=== PATIENT | female | born 1970 | race Caucasian/White ===

== ENCOUNTER 2016-12-07 11:29 | Inpatient (IN) | payer BC ==
[2016-11-26 08:52] VITALS: BMI 24.0
--- NOTE | 2016-11-26 09:21 | PAT Medication Instructions ---
Service Date Nov 26, 2016. Current Home Medication List Amlodipine (Norvasc), 5 MG PO QAM Chlorthalidone (Hygroton), 25 MG PO QAM Nitrofurantoin Macrocrystals (Macrodantin), 50 MG PO QAM Pantoprazole (Protonix), 40 MG PO QAM Medication Instructions For Your Scheduled Surgery - Hold the following medications the morning of surgery: Chlorthalidone (Hygroton), 25 MG PO QAM - Take the following medications the morning of surgery with a sip of water OTHERWISE NOTHING TO EAT OR DRINK AFTER MIDNIGHT: Amlodipine (Norvasc), 5 MG PO QAM Pantoprazole (Protonix), 40 MG PO QAM Nitrofurantoin Macrocrystals (Macrodantin), 50 MG PO QAM If you have any questions please call us at [phone] or [phone] or [phone]
[2016-11-26 10:22] LABS: BASO % 0.2 %; BASO ABS # 0.02 K/uL (0-0.2); COMPLETE YES; EOS % 1.5 %; HEMATOCRIT 39.9 % (37-47); IG% 0.2 %; LYMPH % 25.6 %; MEAN CELL VOLUME 84.5 fL (80-100); MEAN CORPUSCULAR HEMOGLOBIN 29.2 pg (25-34); MEAN CORPUSCULAR HGB CONC 34.6 g/dl (32-36); MEAN PLATELET VOLUME 9.6 fL (7.4-10.4); MONO % 6.9 %; NEUT % 65.6 %; PLATELET COUNT 339 K/uL (130-400); RED BLOOD COUNT 4.72 M/uL (4.2-5.4); WHITE BLOOD COUNT 8.58 K/uL (4.8-10.8)
[2016-11-26 10:33] LABS: PROTHROMBIN TIME (PATIENT) 10.2 SECONDS (9.0-12.0)
[2016-11-26 10:41] LABS: BUN/CREATININE RATIO 33.9 (10-20); CREATININE 0.77 mg/dl (0.60-1.20); POTASSIUM 3.3 mmol/L (3.5-5.1)
--- NOTE | 2016-11-26 10:57 | DIAGNOSTIC IMAGING REPORT ---
TWO VIEW CHEST CLINICAL HISTORY: Preoperative examination. FINDINGS: PA and lateral chest radiographs are compared to study dated 02/07/2016. The cardiomediastinal silhouette is unremarkable. The lungs and pleural spaces are clear. There is no pneumothorax. The bony thorax appears intact. IMPRESSION: No active disease in the chest. Electronically signed by: Tommie Quiñonez M.D. 11/26/2016 10:55 AM Dictated Date/Time: 11/26/2016 10:55 AM
--- NOTE | 2016-12-02 14:25 | HISTORY & PHYSICAL EXAMINATION ---
DATE OF ADMISSION: 12/07/2016 CHIEF COMPLAINT: Bilateral knee pain and discomfort, right side greater than left. HISTORY OF PRESENT ILLNESS: The patient is a 46-year-old white female, who works managing restaurants, who presents specifically for surgical treatment of her right knee. She has got a along history of bilateral knee pain and discomfort treated by my partner, Dr. Pelletier over the years. He has been putting shots in her knees. She injured her right knee about 2 months ago and has had persistent pain and difficulty getting around. She has been through extensive conservative treatment including oral medicines and injection. She continues to have to use crutches to get around and cannot straighten her knee out. She is having quite difficulty doing her job. She would now like to proceed with surgical treatment. Her walking tolerance is very limited. She has been using crutches. Her knee hurts her severely with each step. PAST MEDICAL HISTORY: 1. Hypertension. 2. Gastroesophageal reflux disease. 3. Kidney stones. PAST SURGICAL HISTORY: Include, 1. Hysterectomy x4. 2. Lithotripsy. 3. Kidney stone removal x2. ALLERGIES: 1. PENICILLIN WHICH CAUSE HIVES. No respiratory problems. 2. MORPHINE WHICH CAUSE HIVES. CURRENT MEDICATIONS: Include, 1. Chlorthalidone. 2. Pantoprazole. 3. Nitrofuran. 4. Amlodipine. 5. Mobic. SOCIAL HISTORY: A 46-year-old white female. She does not smoke. She works managing restaurants. She spends a lot of time on her feet typically. FAMILY HISTORY: Noncontributory. REVIEW OF SYSTEMS: Negative for diabetes, neurologic problems, vascular problems or bleeding disorders. Denies any current chest pain or shortness of breath. No history of DVT or PE. PHYSICAL EXAMINATION: GENERAL: Shows a thin, healthy appearing middle-aged female. Looks to be in good health. HEENT: Benign. NECK: Supple. No lymphadenopathy. LUNGS: Clear to auscultation. HEART: Regular rate and rhythm. ABDOMEN: Soft, nontender, nondistended. EXTREMITIES: Grossly neurovascularly intact except as follows: Examination of the right knee and leg reveals the patient walks with a bit of a flexed knee gait. She puts weight on the front part of her foot and her toes. A small knee effusion. Range of motion is about 15 degrees short of full extension and 25 degrees of flexion. Motion of her pain is severe pains with extension. She has no instability. No pain with hip motion. X-RAYS: X-rays of the right knee revealed advanced DJD in both knees. She has got complete loss of medial joint space in both knees. The left side is actually little bit worse than the right. Looks like she might have some loose bodies in the right knee around her patella. ASSESSMENT: A 46-year-old female with advanced bilateral knee degenerative joint disease, right side quite a bit more symptomatic than the left. She had severe incapacitating pain for the past 2 months. It is very possible she has got some loose bodies that have gotten stuck in her knee. PLAN: We talked about treatment options. Based on the level of arthritis, I do not think arthroscopy is an appropriate intervention at this point. I think it is best to proceed with knee replacement. The patient would like to proceed with knee replacement. We are going to take her to the operating room and do a right total knee replacement. The risks and benefits of this procedure were explained to the patient including but not limited to DVT, PE, , infection, neurologic injury, vascular injury, bleeding problem, pain, limited range of motion, stiffness, failure to relieve symptoms, incomplete relief of symptoms, need for further surgery in the future, fracture, leg length inequality, nerve palsy, etc. The patient understands and desires to proceed. Informed consent was obtained. As far as rehab, she is going to plan on using [facility]. I will see her back 2 weeks postop. She did stop her Mobic 10 days preop.
[2016-12-04] MEDS: ANCEF: ALLERGY NOTED TO ORDERED MEDICATION SCH ×2 (12:55→18:30)
[2016-12-07] VITALS (7 sets, daily range): BP systolic 110–135; BP diastolic 65–79; PULSE 64–78; TEMP 36.4–36.7; O2SAT 95–99; Ht 165.1 cm; Wt 65.5 kg
[~2016-12-07] VITALS: Ht 165.1 cm; Wt 65.5 kg
[~2016-12-07 11:29] MED LIST: ACETAMINOPHEN 500 MG TAB PO SCH; AMLO-110 PO; BUPIVACAINE 0.25% 30 ML VIAL ONE; BUPIVACAINE 0.5 % 5 MG/1 ML PF 10ML VIAL ONE; BUPIVACAINE LIPOSOME 266 MG, BUPIVACAINE/EPINEPHRINE INJ 50 ML, SODIUM CHLORIDE 0.9% PF... INFIL SCH; CEFAZOLIN 2000 MG/60 ML D5W 60 ML IV SCH; FAMOTIDINE 20 MG TAB PO SCH; GABAPENTIN 300 MG CAP PO SCH; HYG/25 PO; LACTATED RINGER'S 1000ML 1,000 ML IV SCH; LACTATED RINGER'S 1000ML 500 ML IV ONE; LACTATED RINGER'S 1000ML IV SCH; METOCLOPRAMIDE HCL 10 MG TAB PO SCH; NITR1CAP33 PO; PANT40TA PO; SCOPOLAMINE 1.5 MG TDSY TD SCH; TRANEXAMIC ACID INJ 1,000 MG in SODIUM CHLORIDE 0.9% 100ML 100 ML IV SCH
[2016-12-07] MEDS ORDERED: CLINDAMYCIN 600 MG/54 ML D5W IV ONE (11:32)
[2016-12-07] MEDS ORDERED: ONDANSETRON INJ 2 MG/ML 2 ML VIAL ONE (11:57)
[2016-12-07] MEDS ORDERED: FENTANYL CITRATE INJ 50 MCG/1 ML 2 ML VIAL ONE (11:57)
[2016-12-07] MEDS ORDERED: LIDOCAINE HCL 2% 2 ML VIAL (20MG/ML) ONE (11:57)
[2016-12-07] MEDS ORDERED: PROPOFOL IV EMULSION 10 MG/ML 20 ML VIAL IV ONE (11:57)
[2016-12-07] MEDS ORDERED: MIDAZOLAM HCL 1 MG/ML 2ML VIAL ONE ×3 (11:57→13:53)
[2016-12-07] MEDS ORDERED: EpHEDrine SULFATE INJ 50 MG/ML AMP IV PRN (12:45)
[2016-12-07] MEDS ORDERED: HYDROmorphone INJ 2 MG/ML SYR/VIAL IV PRN (12:45)
[2016-12-07] MEDS ORDERED: ATROPINE SULFATE 0.1 MG/ML 5ML SYR IV PRN (12:45)
[2016-12-07] MEDS ORDERED: ONDANSETRON INJ 2 MG/ML 2 ML VIAL IV PRN (12:45)
[2016-12-07] MEDS ORDERED: PHENYLEPHRINE 100MCG/ML 5ML SYR IV PRN (12:45)
[2016-12-07] MEDS ORDERED: CEFAZOLIN IV 2,000 MG/60 ML D5W IV ONE (12:49)
--- NOTE | 2016-12-07 12:57 | History & Physical Bridge Note ---
H&P Re-Evaluation Bridge Note: I have examined the patient, reviewed the History & Physical and in the interval since the performance of the History & Physical I have noted the following changes of clinical significance: No changes noted
[2016-12-07] MEDS ORDERED: BUPIVACAINE/EPINEPHRINE 0.25% 1:200,000 30 ML VIAL ONE ×2 (13:10→13:14)
[2016-12-07] MEDS ORDERED: SODIUM CHL BACTERIOSTATIC 0.9% INJ 30 ML VIAL ONE (13:10)
[2016-12-07] MEDS ORDERED: BUPIVACAINE LIPOSOME 1/3% 266 MG/20 ML VIAL INFIL ONE (13:11)
[2016-12-07] MEDS ORDERED: SODIUM CHLORIDE 0.9% PF 50 ML VIAL ONE (13:14)
[2016-12-07] MEDS ORDERED: BACITRACIN 50000 UNIT VIAL ONE (13:14)
[2016-12-07] MEDS ORDERED: EpHEDrine SULFATE 50MG/5ML SYR ONE (14:51)
[2016-12-07] MEDS ORDERED: MIX: SENSORCAINE W/EPI+NSS+EXPAREL INJ ONE (14:54)
--- NOTE | 2016-12-07 15:05 | [facility] Post Operative Brief Note ---
Immediate Operative Summary Operative Date Dec 07, 2016. Pre-Operative Diagnosis Right Knee Osteoarthritis Post-Operative Diagnosis Right Knee Osteoarthritis Procedure(s) Performed Right Total Knee Arthroplasty Surgeon Dr. Francis Silver Cleaner Surgeon(s) JUMA Low Estimated Blood Loss 50ml Findings Right Knee DJD Fluids (cc crystalloids) 1500 cc Specimens A) Right knee- bone & tissue Drains None Anesthesia Spinal Complication(s) None Disposition Recovery Room / PACU
[2016-12-07] MEDS ORDERED: SILVER SULFADIAZINE 1% CR 50 GM JAR EXT PRN (15:15)
[2016-12-07] MEDS ORDERED: MAGNESIUM HYDROXIDE SUSP 30 ML UDC PO PRN (15:15)
[2016-12-07] MEDS ORDERED: HYDROmorphone INJ 1 MG/ML SYR IV PRN (15:15)
[2016-12-07] MEDS ORDERED: ALUMINUM/MAGNESIUM/SIMETH (MAALOX MAX) 30 ML UDC PO PRN (15:15)
[2016-12-07] MEDS ORDERED: BISACODYL 10 MG SUPP PR PRN (15:15)
[2016-12-07] MEDS ORDERED: DiphenhydrAMINE HCL 50 MG/ML VIAL IV PRN (15:15)
[2016-12-07] MEDS ORDERED: ZOLPIDEM TARTRATE 5 MG TAB PO PRN (15:15)
--- NOTE | 2016-12-07 15:36 | Anesthesiology Progress Note ---
Anesthesia Post Op Note Date & Time Dec 07, 2016 at 15:36 Vital Signs Pain Intensity: 0 Vital Signs Past 12 Hours Date Time Temp Pulse Resp B/P Pulse Ox O2 Delivery O2 Flow Rate FiO2 12/07/16 15:26 36.5 67 12/07/16 15:26 68 16 100 12/07/16 15:23 117/63 12/07/16 15:21 67 14 100 12/07/16 15:21 67 14 12/07/16 15:18 112/67 12/07/16 15:16 68 17 12/07/16 15:16 69 17 100 12/07/16 15:13 120/69 12/07/16 15:11 67 17 12/07/16 15:11 67 17 100 12/07/16 15:08 118/65 12/07/16 15:06 36.6 85 14 118/65 100 Mask 10 12/07/16 11:55 36.7 78 16 132/77 98 Room Air Notes Mental Status: alert / awake / arousable, participated in evaluation Pt Amnestic to Procedure: Yes Nausea / Vomiting: adequately controlled Pain: adequately controlled Airway Patency, RR, SpO2: stable & adequate BP & HR: stable & adequate Hydration State: stable & adequate Neuraxial Anesthesia: was administered, sensory block is resolving Anesthetic Complications: no major complications apparent
--- NOTE | 2016-12-07 15:49 | DIAGNOSTIC IMAGING REPORT ---
RIGHT KNEE 1 OR 2 VIEWS ROUTINE CLINICAL HISTORY: Postoperative evaluation of the right knee. COMPARISON: Right knee radiographs October 12, 2016. FINDINGS: Alignment of the total right knee arthroplasty is anatomic. There are skin rafy. There are no unexpected radiopaque foreign bodies. A transverse lucency within the distal right femur is shown on lateral projection. IMPRESSION: 1. Status post total right knee arthroplasty. Hardware intact with no unexpected radiopaque foreign body. 2. Transverse lucency of the distal right femur shown only on lateral projection. A fracture is considered unlikely although short-term radiographic follow up is recommended. Electronically signed by: Carson Chen M.D. 12/07/2016 3:48 PM Dictated Date/Time: 12/07/2016 3:44 PM
[2016-12-07] MEDS: CHECK SCOPOLAMINE PATCH PLACEMENT SCH ×2 (16:00→23:38)
[2016-12-07] MEDS ORDERED: CHECK SCOPOLAMINE PATCH PLACEMENT SCH (16:00)
[2016-12-07] MEDS ORDERED: NURSING VERBAL MED ORDER ONE (17:15)
[2016-12-07] MEDS ORDERED: METOCLOPRAMIDE HCL 10 MG TAB PO PRN ×2 (17:45→18:00)
--- NOTE | 2016-12-07 18:03 | PROGRESS NOTE ---
DATE: 12/07/2016 SUBJECTIVE: This is an x-ray report. I did review Lenka's x-rays, postoperative x-rays from the recovery room. It shows a cemented posterior stabilized total knee arthroplasty. Components looked to be in good position. There was some concern by the radiologist about a fracture on the lateral film. This lucency that they are saying is just the base where the intercondylar notch areas cut out and I do not think there is any fracture there. There were no complications at all during her surgery. No anticipated or unexpected events to suggest fracture and I believe this is just the base where the notch cut was made.
[2016-12-07] MEDS: KETOROLAC TROMETHAMINE 30 MG/ML VIAL IV. SCH ×2 (18:11→23:38)
[2016-12-07] MEDS: FERROUS GLUCONATE 324 MG TAB PO SCH (18:39)
[2016-12-07] MEDS: D5W AND 1/2NSS + 20MEQ KCL 1,000 ML IV SCH (18:39)
[2016-12-07] MEDS: OXYCODONE HCL IR 5 MG TAB (IMMEDIATE RELEASE) PO PRN (18:40)
[2016-12-07] MEDS: CEFAZOLIN IV 1,000 MG in DEXTROSE 5% 50ML 50 ML IV SCH (19:58)
[2016-12-07] MEDS: ACETAMINOPHEN 500 MG TAB PO SCH (19:59)
--- NOTE | 2016-12-07 20:37 | OPERATIVE REPORT ---
DATE OF OPERATION: 12/07/2016 SURGEON: Dr. Julián Francis. SHOP GIRL: JUMA Low. PREOPERATIVE DIAGNOSIS: Right knee degenerative joint disease. POSTOPERATIVE DIAGNOSIS: Same. PROCEDURE PERFORMED: Right cemented posterior stabilized total knee arthroplasty. COMPLICATIONS: None. ESTIMATED BLOOD LOSS: 50 mL FLUID REPLACEMENT: 1500 mL crystalloid fluid replacement. ANESTHESIA: Spinal with adductor canal block. DRAINS: None. SPECIMENS: Right knee sent for pathology. TOURNIQUET TIME: 51 minutes at 300 mmHg. OPERATIVE INDICATIONS: The patient is a 46-year-old female, very active, who has had a several-year history of increasing bilateral knee pain and discomfort. She has been followed by my partner, Dr. Pelletier. Over the past 6 weeks, she has developed markedly increasing knee pain and discomfort and having difficulty even walking. She developed a locked knee. It was felt she had several loose bodies in her knee. X-rays showed advanced knee arthritis. She has failed conservative treatment and we did not feel arthroscopy would be a predictable operation for her. She elected to proceed with total knee arthroplasty. OPERATIVE FINDINGS: Operative findings were advanced right knee DJD. She had grade 4 [id number] disease extensively in the medial compartment and eburnation of the medial femoral condyle and medial tibial plateau. There were several small loose bodies throughout her knee joint. There were 2 loose bodies which did have some slight synovial attachment in the intercondylar notch area. OPERATIVE IMPLANTS: Operative implants consisted of: 1. Biomet Vanguard size 62.5 right posterior stabilized femoral component. 2. Biomet size 63 tibial tray. 3. A 12 mm posterior stabilized polyethylene insert. 4. A 28 x 8 all-poly patella. OPERATIVE PROCEDURE: The patient taken to the operating room, identified and placed on the operating table in supine position. All contact areas were appropriately padded. IV antibiotics were provided by anesthesia team. A spinal anesthetic and adductor canal block had been provided in the holding area. Gonzales catheter was placed in sterile fashion. A right thigh tourniquet was then placed. The right lower extremity was then prepped and draped in the usual sterile fashion. The right leg was elevated and exsanguinated with Esmarch and tourniquet was placed at 300 mmHg. An anterior approach to the right knee was then performed through a longitudinal incision centered over the patella. Sharp dissection was carried out through the subcutaneous tissues down to the level of the extensor mechanism. A medial parapatellar arthrotomy incision was made. Some subperiosteal dissection was carried out medially. The fat pad was resected from beneath the patellar tendon. The lateral patellofemoral ligament was released. The patella was everted, the ACL and PCL were then released from the distal femur, and the tibia subluxated anteriorly. The external tibial alignment jig was then placed in the anterior face of the tibia and adjusted about 16 mm medially. Proximal tibial cut was made to remove about 2-3 mm of bone from the most deficient aspect of the medial tibial plateau. Tibia was then sized to a size 63. We did have to downsize this slightly because the lateral condyle from AP was more narrow and the 67 tray was just too big in those dimensions. Attention was then drawn to the femur. The distal femur was entered with a sharp drill. Intramedullary canal was suctioned. A right 5-degree valgus cutting guide was then placed and distal femoral cutting block was pinned in place. Distal femoral cut was made to take an additional 3 mm of bone off the distal femur. The femur was then sized to a size 62.5. We did downsize this almost the entire size due to the narrow medial lateral dimensions of her femur. The AP cutting block was then pinned parallel to the epicondylar axis, which was 4 degrees of external rotation. The anterior cut, anterior chamfer, posterior cut, posterior chamfer cuts were made. Box cutting guide was placed and adjusted slightly laterally. The box cut was made. The knee was flexed. The remnants of the medial and lateral menisci were excised. The osteophytes were taken off the posterior aspect of the femur. I did release the popliteus tendon as it was fairly prominent and I kept the lateral side a little bit tight in flexion. By releasing this, we did equalize the flexion gap. The trial femoral component was placed. Tibial tray was pinned in maximum external rotation, and drill and stem punch were used to create defect in proximal tibia for the tibial tray. The knee was then trialed and 12 mm insert fit most appropriately. I did leave this just a little bit loose as the knee was kind of tight. Beforehand, I went and made sure she got into full extension. Attention was then drawn to the patella. The patella was cleaned off all soft tissues. The patella thickness measured 21 mm and was cut down to 13. It was sized to a size 28 patella. The lug holes were drilled for a 28 patella. Lateral osteophytes removed. Patella button was placed. Knee was taken through range of motion and patella tracked nicely with no thumbs test. Attention was then drawn toward placement of permanent components. All trial components were removed. Bone plug was placed in the distal femur to limit blood loss. A double batch of Palacos G cement was mixed. Right size 62.5 posterior stabilized femoral component, size 63 tibial tray, a 12 mm posterior stabilized polyethylene insert, and a 28 x 8 all-poly patella were then cemented in place. The knee was brought out into full extension until the cement hardened. A final cement check was then performed. The pericapsular tissues were injected with 100 mL of a combination of 20 mL of Exparel, 30 mL of normal saline, 50 mL of 0.25% Marcaine with epinephrine. The patient did receive 1 gram of tranexamic acid. The tourniquet was then let down for a final tourniquet time of 51 minutes. Hemostasis was assured with use of electrocautery. The extensor mechanism was then closed with a combination of 1 PDS suture and #1 Vicryl suture in a [id number] fashion. Extensor mechanism was checked and found to be intact. The subcutaneous tissues were then closed with 2-0 Dexon suture in a buried interrupted fashion, skin was closed skin rafy. Leg was then cleaned and dried, and a sterile dressing of Xeroform, 4 x 4's, sterile cast padding and Senthil bandage were applied. The patient then transferred to the recovery room in stable condition. The patient tolerated the procedure well with no complications. All needle and sponge counts were correct at the end of the operation. I attest to the content of the Intraoperative Record and any orders documented therein. Any exceptio ns are noted below.
[2016-12-07] MEDS ORDERED: TRANEXAMIC ACID INJ 1,000 MG in SODIUM CHLORIDE 0.9% 100ML 100 ML IV ONE (21:00)
[2016-12-07] MEDS ORDERED: TRANEXAMIC ACID INJ 1,000 MG in SODIUM CHLORIDE 0.9% 100ML 100 ML IV SCH (21:00)
[2016-12-07] MEDS: ONDANSETRON INJ 2 MG/ML 2 ML VIAL IV PRN (21:07)
[2016-12-07] MEDS: TAPENTADOL ER 50 MG TABCR PO SCH (21:08)
[2016-12-07] MEDS: DOCUSATE SODIUM 100 MG CAP PO SCH (21:08)
[2016-12-07] MEDS: ASPIRIN 325 MG ECTAB PO SCH (21:08)
[2016-12-08 03:10] VITALS: BP 124/77; PULSE 66; TEMP 36.7; O2SAT 97
[2016-12-08] MEDS: ONDANSETRON INJ 2 MG/ML 2 ML VIAL IV PRN ×2 (03:43→12:33)
[2016-12-08] MEDS: METOCLOPRAMIDE HCL INJ 5 MG/ML 2 ML VIAL IV PRN ×2 (04:09→14:12)
[2016-12-08] MEDS: D5W AND 1/2NSS + 20MEQ KCL 1,000 ML IV SCH ×2 (04:10→13:11)
[2016-12-08] MEDS: CEFAZOLIN IV 1,000 MG in DEXTROSE 5% 50ML 50 ML IV SCH (04:10)
[2016-12-08] MEDS: ACETAMINOPHEN 500 MG TAB PO SCH ×3 (04:10→19:24)
[2016-12-08] MEDS: KETOROLAC TROMETHAMINE 30 MG/ML VIAL IV. SCH ×5 (05:29→23:59)
[2016-12-08 06:45] LABS: HEMATOCRIT 33.9 % (37-47); MEAN CELL VOLUME 86.3 fL (80-100); MEAN CORPUSCULAR HEMOGLOBIN 29.5 pg (25-34); MEAN CORPUSCULAR HGB CONC 34.2 g/dl (32-36); MEAN PLATELET VOLUME 9.2 fL (7.4-10.4); PLATELET COUNT 289 K/uL (130-400); RED BLOOD COUNT 3.93 M/uL (4.2-5.4)
[2016-12-08 07:07] VITALS: BP 109/69; PULSE 62; TEMP 36.9; O2SAT 97
[2016-12-08 07:20] LABS: CALCIUM 7.9 mg/dl (8.5-10.1); CREATININE 0.78 mg/dl (0.60-1.20); POTASSIUM 3.2 mmol/L (3.5-5.1)
[2016-12-08] MEDS: CHECK SCOPOLAMINE PATCH PLACEMENT SCH ×2 (08:00→16:00)
[2016-12-08] MEDS: DOCUSATE SODIUM 100 MG CAP PO SCH ×2 (08:34→21:08)
[2016-12-08] MEDS: ASPIRIN 325 MG ECTAB PO SCH ×2 (08:34→21:08)
[2016-12-08] MEDS: FERROUS GLUCONATE 324 MG TAB PO SCH ×3 (08:34→18:02)
[2016-12-08] MEDS: NITROFURANTOIN MACROCRYSTALS 50 MG CAP PO SCH (08:37)
[2016-12-08] MEDS: MULTIVITAMIN TAB PO SCH (08:37)
[2016-12-08] MEDS: AMLODIPINE BESYLATE 5 MG TAB PO SCH (08:37)
[2016-12-08] MEDS: PANTOprazole SOD 40 MG TAB PO SCH (08:37)
[2016-12-08] MEDS: CHLORTHALIDONE 25 MG TAB PO SCH (08:38)
[2016-12-08] MEDS: TAPENTADOL ER 50 MG TABCR PO SCH ×2 (08:38→21:08)
[2016-12-08] MEDS: OXYCODONE HCL IR 5 MG TAB (IMMEDIATE RELEASE) PO PRN (08:39)
[2016-12-08] MEDS ORDERED: OXYC-57 PO (08:49)
[2016-12-08] MEDS ORDERED: ASPEC325 PO (08:49)
--- NOTE | 2016-12-08 08:56 | PROGRESS NOTE ---
DATE: 12/08/2016 SUBJECTIVE: A 46-year-old female postop day 1 from right knee replacement. She is doing pretty well. Pain has been controlled. She has been using pain medicines. Denies any chest pain or shortness of breath. Not feeling dizzy or lightheaded. OBJECTIVE: VITAL SIGNS: Temperature is 36.9. Vital signs stable. GENERAL: Physical examination reveals a healthy pleasant, middle-aged female. She is sitting up in bed and looks comfortable. LUNGS: Clear to auscultation. HEART: Regular rate and rhythm. ABDOMEN: Soft, nontender, and nondistended. EXTREMITIES: Grossly neurovascularly intact except as follows. Examination of the right lower extremity reveals the leg to be well aligned. Dressing is clean, dry and intact. She can dorsiflex her foot and toes appropriately. She is neurologically intact. LABORATORY DATA: Hemoglobin 11.6. Hematocrit 33.9. White cell count 12.80. Electrolytes, her potassium is 3.2. Other electrolytes are fairly stable. ASSESSMENT: A 46-year-old female postop day 1 from a right total knee replacement, doing well. Pain is reasonably well controlled. Her potassium is low and we will supplement that. PLAN: 1. DVT prophylaxis including thigh-high TEDs, SCDs, and aspirin twice a day. 2. PT/OT. Weightbear as tolerated. Right total knee protocol. 3. Pain control, doing pretty well with current pain regimen. 4. Hypokalemia. We will supplement potassium. 5. Disposition: She is hoping to be discharged to home and we will likely do outpatient therapy once adequately recovered. NATY
[2016-12-08] MEDS ORDERED: PANTOprazole SOD 40 MG TAB PO SCH (09:00)
[2016-12-08] MEDS ORDERED: POTASSIUM CHLORIDE 10 MEQ TABCR PO ONE ×2 (09:15→18:00)
[2016-12-08 11:06] VITALS: BP 125/70; PULSE 66; TEMP 36.8; O2SAT 95
[2016-12-08 12:17] VITALS: BP 125/70; PULSE 66; TEMP 36.8; O2SAT 95
[2016-12-08 15:18] VITALS: BP 114/65; PULSE 66; TEMP 36.8; O2SAT 96
[2016-12-08] MEDS ORDERED: PROM25TA9 PO (15:26)
[2016-12-08 22:56] VITALS: BP 104/57; PULSE 72; TEMP 36.9; O2SAT 99
[2016-12-09] MEDS: CHECK SCOPOLAMINE PATCH PLACEMENT SCH
[2016-12-09] MEDS: ACETAMINOPHEN 500 MG TAB PO SCH ×2 (03:41→14:00)
[2016-12-09] MEDS: KETOROLAC TROMETHAMINE 30 MG/ML VIAL IV. SCH ×2 (05:38→13:59)
[2016-12-09 05:59] VITALS: BP 114/69; PULSE 60; TEMP 36.8; O2SAT 98
[2016-12-09 08:00] VITALS: BP 110/60; PULSE 78; TEMP 36.9; O2SAT 97
[2016-12-09] MEDS: METOCLOPRAMIDE HCL INJ 5 MG/ML 2 ML VIAL IV PRN (08:13)
[2016-12-09] MEDS: OXYCODONE HCL IR 5 MG TAB (IMMEDIATE RELEASE) PO PRN ×2 (08:35→14:03)
[2016-12-09] MEDS: PANTOprazole SOD 40 MG TAB PO SCH (08:35)
[2016-12-09] MEDS: TAPENTADOL ER 50 MG TABCR PO SCH (08:35)
[2016-12-09] MEDS: CHLORTHALIDONE 25 MG TAB PO SCH (08:36)
[2016-12-09] MEDS: MULTIVITAMIN TAB PO SCH (08:36)
[2016-12-09] MEDS: NITROFURANTOIN MACROCRYSTALS 50 MG CAP PO SCH (08:36)
[2016-12-09] MEDS: FERROUS GLUCONATE 324 MG TAB PO SCH ×2 (08:36→13:59)
[2016-12-09] MEDS: AMLODIPINE BESYLATE 5 MG TAB PO SCH (08:37)
[2016-12-09] MEDS: DOCUSATE SODIUM 100 MG CAP PO SCH (08:37)
[2016-12-09] MEDS: ASPIRIN 325 MG ECTAB PO SCH (08:37)
--- NOTE | 2016-12-09 08:43 | Discharge Instructions ---
Discharge Instructions Admission Reason for Admission: Right Knee Osteoarthritis Discharge Discharge Diagnosis / Problem: Right Knee Replacement Discharge Goals Goal(s): Decrease discomfort, Improve function, Increase independence, Improve disease control, Therapeutic intervention Activity Recommendations Activity Limitations: per Instructions/Follow-up section Weightbearing Status: Right weightbearing . Instructions / Follow-Up Instructions / Follow-Up ACTIVITY RECOMMENDATIONS: Physical Therapy: * You will go to physical therapy three times each week for four to six weeks after your surgery in order to regain your knee range of motion and to retrain your knee to work properly. * It is just as important to make sure you are getting your knee perfectly straight as it is to regain your knee bend. * Taking a pain pill an hour before therapy can help you have a more productive and comfortable therapy session. Home Exercise: * You were shown a series of exercises (heel props, heel slides, etc.) in the hospital. Do these exercises three to four times each day including the exercises you were shown in physical therapy. Walking: * Get up and walk several times each day. For the first four weeks, try not to stand or walk for more than one hour at a time. If you do stand or walk for more than one hour, you will not hurt anything, but your knee and leg will likely swell. * As you feel comfortable, you may change from the walker or crutches to a cane and then to independent walking. MEDICATIONS: New Medicine: * You will likely be taking one or more of these medications: 1. Percocet - A quick and shorter-acting pain medication. Take one to two tablets every four to six hours to lessen your pain. 2. Aspirin - Thins your blood to lessen the chance of forming a blood clot. * The most common side effects of pain medicine and iron are nausea and constipation. If nausea or constipation is too much of a problem or if you have any questions about your new medicines or doses, call [facility] at . We will try to help you manage these issues. VERY IMPORTANT TO READ AND REVIEW" Pain: * The immediate post-operative period after knee replacement surgery is often quite painful. * You are given a prescription for pain medicine. You should take it, as directed, when you need it, especially before physical therapy and before going to bed. Pain that interferes with sleep is very common and can last several months. * You will likely need pain medicine for the first four to six weeks. It will not stop all of the pain. The pain will lessen and as you feel better, you may change to milder pain medicine such as Tylenol. * The most common side effects of pain medicine are nausea and constipation, so don't take more than you need. SPECIAL CARE INSTRUCTIONS: TEDs/Elastic Stockings: * The white elastic stockings help limit swelling and prevent blood clots from forming in your legs. The more you wear them, the more they work. * Wear them for six weeks after knee replacement surgery and four weeks after partial knee replacement. Prevention of Infection: * Take antibiotics one hour before any dental cleaning, dental work, urological procedure, gastrointestinal procedure or any invasive surgery in order to prevent your new joint from getting infected. * You may get the antibiotics from the doctor performing the procedure or you may call our office at before and we will call in a prescription to the pharmacy of your choice. Things to Watch For: * Drainage from the incision site that occurs more than one week after your surgery. * Severely increased knee/leg pain or swelling. * Increased redness at the incision site. * Fever above 102 degrees Fahrenheit. * Unusual chest pain or shortness of breath. * Unusual pain or burning with urination. Call [facility] at with any of the above problems or if you have any questions about your medicines or recovery. FOLLOW UP VISIT: Make an appointment to see your doctor for approximately two weeks after surgery for a progress check and staple removal by calling the office at . Current Hospital Diet Patient's current hospital diet: Regular Diet Discharge Diet Recommended Diet: Regular Diet Procedures Procedures Performed: Right Total Knee Arthroplasty Pending Studies Studies pending at discharge: no Medical Emergencies . Who to Call and When: Medical Emergencies: If at any time you feel your situation is an emergency, please call [phone] immediately. . Non-Emergent Contact Non-Emergency issues call your: Surgeon . "Provider Documentation" section prepared by Julián Francis. VTE Core Measure Inpt VTE Proph given/why not?: Other Anticoagulation, T.E.D. Stockings, SCD's
[2016-12-09 09:08] VITALS: O2SAT 97
[2016-12-09 14:20] VITALS: BP 110/60; PULSE 78; TEMP 36.9; O2SAT 97
--- NOTE | 2016-12-09 19:57 | PROGRESS NOTE ---
DATE: 12/09/2016 SUBJECTIVE: A 46-year-old female, postop day #2 from a right total knee replacement. She is doing pretty well. Pain is controlled. Therapy went reasonably well. OBJECTIVE: VITAL SIGNS: Temperature 36.9. Vital signs are stable. GENERAL: Reveals a healthy, pleasant middle-aged female. She is sitting up in bed, looks pretty comfortable. She is talking to her family when I visited her today. LUNGS: Clear to auscultation. HEART: Regular rate and rhythm. ABDOMEN: Soft, nontender, nondistended. EXTREMITIES: Grossly neurovascularly intact except as follows. Examination of the right lower extremity reveals the leg to be well aligned. Dressing is clean, dry and intact. She can dorsiflex and plantarflex her foot appropriately. She is neurologically intact. ASSESSMENT: A 46-year-old female, postoperative day #2 from right knee replacement, doing pretty well. Pain is controlled. PLAN: 1. DVT prophylaxis including thigh-high TEDs, SCDs and aspirin placed. 2. PT/OT. Weightbearing as tolerated. Right total knee protocol. 3. Pain control, doing pretty well with current pain regimen. 4. Disposition: Plan to discharge to home and she is going to do outpatient therapy.
--- NOTE | 2016-12-16 14:09 | DISCHARGE SUMMARY ---
ADMITTING PHYSICIAN AND SURGEON: Dr. Francis. ADMITTING DIAGNOSIS: Right knee degenerative joint disease. SURGERY PERFORMED: Right total knee arthroplasty. SECONDARY DIAGNOSES: Hypertension, gastroesophageal reflux disease, kidney stones. CONSULTS: None obtained. HISTORY AND PHYSICAL EXAMINATION: Well documented in patient's chart. HOSPITAL COURSE: The patient was admitted on 12/07/2016 underwent total knee arthroplasty, tolerated the procedure well. There were no complications. She was transferred to the PACU postoperatively and later to the orthopedic floor for further care. She was given Ancef for antibiotic prophylaxis, TAWANNA stockings, SCDs and aspirin for DVT prophylaxis. Hemoglobin, hematocrit and vital signs were monitored during her hospital stay and remained stable. She developed some mild postoperative anemia with a hemoglobin of 11.6. She did not require any blood transfusions. She did have some hypokalemia postoperatively and received potassium supplement and her potassium returned 3.8 prior to discharge. There were no complications. By postoperative day 2, she was tolerating a general diet, pain was controlled with oral pain medicine. She was participating in physical therapy and had no signs or symptoms of DVT. On postop day 2, she was discharged home in good condition, given printed discharge instructions including a new prescription for Phenergan. She can continue her home medications, continue physical therapy, weightbearing as tolerated. TAWANNA stockings. Follow up with Dr. Francis in 10-12 days or sooner if there are problems or concerns.
== END 2016-12-09 15:14 | disposition home or self-care (01) | DRG 470 ==
LOC: ENRESERVDT → ENRESERVTM → C.ACU 11:29 → C.3E 15:10
PROVIDERS: ADMIT Orthopaedic Surgery Sports Medicine; ATTEND Orthopaedic Surgery Sports Medicine
PROC: 0SRC0J9 Replacement of Right Knee Joint with Synthetic Substitute, Cemented, Open Approach (ICD-10-PCS; principal; 2016-12-07 13:00)
DX: M17.11 Unilateral primary osteoarthritis, right knee (principal); I10 Essential (primary) hypertension; K21.9 Gastro-esophageal reflux disease without esophagitis; Z87.442 Personal history of urinary calculi; Z90.710 Acquired absence of both cervix and uterus; Z88.0 Allergy status to penicillin; Z88.5 Allergy status to narcotic agent; Z79.899 Other long term (current) drug therapy; E87.6 Hypokalemia

== ENCOUNTER 2016-12-13 00:19 | Emergency (ER) | payer BC ==
[~2016-12-13] VITALS: Ht 165.1 cm; Wt 70.6 kg
[~2016-12-13 00:19] MED LIST changes: -ACETAMINOPHEN 500 MG TAB PO SCH; +ASPEC325 PO; -BUPIVACAINE 0.25% 30 ML VIAL ONE; -BUPIVACAINE 0.5 % 5 MG/1 ML PF 10ML VIAL ONE; -BUPIVACAINE LIPOSOME 266 MG, BUPIVACAINE/EPINEPHRINE INJ 50 ML, SODIUM CHLORIDE 0.9% PF... INFIL SCH; -CEFAZOLIN 2000 MG/60 ML D5W 60 ML IV SCH; -FAMOTIDINE 20 MG TAB PO SCH; -GABAPENTIN 300 MG CAP PO SCH; -LACTATED RINGER'S 1000ML 1,000 ML IV SCH; -LACTATED RINGER'S 1000ML 500 ML IV ONE; -LACTATED RINGER'S 1000ML IV SCH; -METOCLOPRAMIDE HCL 10 MG TAB PO SCH; +OXYC-57 PO; +PROM25TA9 PO; -SCOPOLAMINE 1.5 MG TDSY TD SCH; -TRANEXAMIC ACID INJ 1,000 MG in SODIUM CHLORIDE 0.9% 100ML 100 ML IV SCH
[2016-12-13 00:27] VITALS: TEMP 37.1; Ht 165.1 cm; Wt 70.6 kg
[2016-12-13] MEDS ORDERED: FENTANYL CITRATE INJ 50 MCG/1 ML 2 ML VIAL IV STA (00:44)
[2016-12-13] MEDS ORDERED: ONDANSETRON INJ 2 MG/ML 2 ML VIAL IV STA (00:44)
[2016-12-13 01:01] VITALS: O2SAT 94
[2016-12-13 01:03] LABS: BASO % 0.6 %; BASO ABS # 0.04 K/uL (0-0.2); COMPLETE YES; EOS % 6.9 %; HEMATOCRIT 32.6 % (37-47); IG% 0.4 %; LYMPH ABS # 2.21 K/uL (1.2-3.4); MEAN CELL VOLUME 86.5 fL (80-100); MEAN CORPUSCULAR HEMOGLOBIN 28.9 pg (25-34); MEAN CORPUSCULAR HGB CONC 33.4 g/dl (32-36); MEAN PLATELET VOLUME 8.9 fL (7.4-10.4); MONO % 7.9 %; NEUT % 53.2 %; PLATELET COUNT 407 K/uL (130-400); RED BLOOD COUNT 3.77 M/uL (4.2-5.4); WHITE BLOOD COUNT 7.13 K/uL (4.8-10.8)
[2016-12-13 01:13] LABS: INR 0.9 (0.9-1.1); PROTHROMBIN TIME (PATIENT) 9.8 SECONDS (9.0-12.0)
[2016-12-13] MEDS ORDERED: OXYC-57 PO (01:17)
[2016-12-13] MEDS ORDERED: ASPI325T45 PO (01:18)
[2016-12-13] MEDS ORDERED: POTA10CA28 PO (01:20)
[2016-12-13 01:26] LABS: BUN/CREATININE RATIO 24.9 (10-20); CALCIUM 8.5 mg/dl (8.5-10.1); CREATININE 0.73 mg/dl (0.60-1.20); POTASSIUM 3.2 mmol/L (3.5-5.1)
[2016-12-13 01:28] LABS: ALB/GLOB RATIO 0.9 (0.9-2)
[2016-12-13] MEDS ORDERED: POTASSIUM CHLORIDE 10 MEQ TABCR PO STA (01:33)
[2016-12-13 02:52] VITALS: BP 114/62; PULSE 86; O2SAT 95
--- NOTE | 2016-12-13 03:04 | EMERGENCY ROOM VISIT NOTE ---
History First contact with patient: 00:39 Chief Complaint: ANKLE PAIN Stated Complaint: S/P SURGERY-SWOLLEN RT ANKLE,BRUISING,TENDER,FLUID History of Present Illness The patient is a 46 year old female who presents to the Emergency Room with complaints of right lower leg pain and swelling for the past few days who had knee replacement surgery on Wednesday by Dr. Francis. Patient has been doing her physical therapy. Patient denies fevers, numbness, tingling, severe pain, hip pain, chest pain, dyspnea. Patient states she just wants to make sure the swelling is okay. She states she can feel her toes without difficulties. Review of Systems See HPI for pertinent positives & negatives. A total of 10 systems reviewed and were otherwise negative. Past Medical/Surgical History Medical Problems: (1) Right Knee DJD Social History Smoking Status: Never Smoker Alcohol Use: occasionally Drug Use: none Marital Status: Housing Status: lives with family Occupation Status: employed Current/Historical Medications Scheduled Amlodipine (Norvasc), 5 MG PO QAM Aspirin (Aspirin), 325 MG PO BID Chlorthalidone (Hygroton), 25 MG PO QAM Nitrofurantoin Macrocrystals (Macrodantin), 50 MG PO QAM Pantoprazole (Protonix), 40 MG PO QAM Potassium Chloride (Micro-K Ext Rel), 20 MEQ PO BID Scheduled PRN Oxycodone/Acetaminophen 5MG/325MG (Percocet 5MG/325MG), 1-2 TABLETS PO Q6H PRN for Pain Promethazine Hcl (Phenergan), 25 MG PO Q6H PRN for Nausea Allergies Coded Allergies: Erythromycin (Verified Allergy, Intermediate, HIVES, 12/13/16) Morphine (Verified Allergy, Mild, RASH, ITCHY, 12/13/16) Penicillins (Verified Allergy, Unknown, RASH, 12/13/16) Physical Exam Vital Signs Date Time Temp Pulse Resp B/P Pulse Ox O2 Delivery O2 Flow Rate FiO2 12/13/16 02:52 86 16 114/62 95 12/13/16 01:54 84 12/13/16 01:46 85 16 129/73 95 Room Air 12/13/16 01:01 94 Room Air 12/13/16 00:27 37.1 98 20 132/71 95 Room Air Pain Rating (0-10): 4.0 Physical Exam VITALS: Vitals are noted on the nurse's note and reviewed by myself. Vital signs stable. GENERAL: Pleasant female, in no acute distress, nondiaphoretic, well-developed well-nourished. SKIN: Capillary reflex less than 2 seconds. HEENT: Normocephalic. PERRLA. EOMI. Nares patent. Mucous membranes moist. Neck is supple without nuchal rigidity. HEART: Regular rate and rhythm without murmurs gallops or rubs. LUNGS: Clear to auscultation bilaterally without wheezes, rales or rhonchi. No retractions or accessory muscle use. ABDOMEN: Positive bowel sounds x 4. Normal tympanic percussion. Soft, nontender, without masses or organomegaly. Hurt sign negative. No guarding or rebound tenderness. MUSCULOSKELETAL: No gross musculoskeletal defects. No pedal edema. Right knee surgical scars intact without signs of infection or drainage. Right lower leg slightly edematous with ecchymosis present most likely dependent edema and blood going down the leg from recent surgery. Pedal pulses +2 equal present bilaterally. No tib-fib, ankle, foot tenderness on exam. NEURO: Patient was alert and oriented to person place and time. Normal sensation to light and sharp touch. No focal neurological deficits. Medical Decision & Procedures Laboratory Results 12/13/16 00:50 Red Blood Count 3.77, Mean Corpuscular Volume 86.5, Mean Corpuscular Hemoglobin 28.9, Mean Corpuscular Hemoglobin Concent 33.4, Mean Platelet Volume 8.9, Neutrophils (%) (Auto) 53.2, Lymphocytes (%) (Auto) 31.0, Monocytes (%) (Auto) 7.9, Eosinophils (%) (Auto) 6.9, Basophils (%) (Auto) 0.6, Neutrophils # (Auto) 3.80, Lymphocytes # (Auto) 2.21, Monocytes # (Auto) 0.56, Eosinophils # (Auto) 0.49, Basophils # (Auto) 0.04 12/13/16 00:50 Test 12/13/16 00:50 White Blood Count 7.13 K/uL (4.8-10.8) Red Blood Count 3.77 M/uL (4.2-5.4) Hemoglobin 10.9 g/dL (12.0-16.0) Hematocrit 32.6 % (37-47) Mean Corpuscular Volume 86.5 fL (80-100) Mean Corpuscular Hemoglobin 28.9 pg (25-34) Mean Corpuscular Hemoglobin Concent 33.4 g/dl (32-36) Platelet Count 407 K/uL (130-400) Mean Platelet Volume 8.9 fL (7.4-10.4) Neutrophils (%) (Auto) 53.2 % Lymphocytes (%) (Auto) 31.0 % Monocytes (%) (Auto) 7.9 % Eosinophils (%) (Auto) 6.9 % Basophils (%) (Auto) 0.6 % Neutrophils # (Auto) 3.80 K/uL (1.4-6.5) Lymphocytes # (Auto) 2.21 K/uL (1.2-3.4) Monocytes # (Auto) 0.56 K/uL (0.11-0.59) Eosinophils # (Auto) 0.49 K/uL (0-0.5) Basophils # (Auto) 0.04 K/uL (0-0.2) RDW Standard Deviation 41.7 fL (36.4-46.3) RDW Coefficient of Variation 13.1 % (11.5-14.5) Immature Granulocyte % (Auto) 0.4 % Immature Granulocyte # (Auto) 0.03 K/uL (0.00-0.02) Prothrombin Time 9.8 SECONDS (9.0-12.0) Prothromb Time International Ratio 0.9 (0.9-1.1) Activated Partial Thromboplast Time 27.2 SECONDS (21.0-31.0) Partial Thromboplastin Ratio 1.0 Anion Gap 8.0 mmol/L (3-11) Est Creatinine Clear Calc Drug Dose 92.9 ml/min Estimated GFR () 112.9 Estimated GFR (Non- 97.4 BUN/Creatinine Ratio 24.9 (10-20) Calcium Level 8.5 mg/dl (8.5-10.1) Total Bilirubin 0.4 mg/dl (0.2-1) Aspartate Amino Transf (AST/SGOT) 16 U/L (15-37) Alanine Aminotransferase (ALT/SGPT) 27 U/L (12-78) Alkaline Phosphatase 71 U/L (45-117) Total Protein 7.1 gm/dl (6.4-8.2) Albumin 3.4 gm/dl (3.4-5.0) Globulin 3.7 gm/dl (2.5-4.0) Albumin/Globulin Ratio 0.9 (0.9-2) Medications Administered Medications (Trade) Dose Ordered Sig/Lea Route Start Time Stop Time Status Last Admin Dose Admin Fentanyl Citrate (Fentanyl Inj) 50 mcg NOW STAT IV 12/13/16 00:44 12/13/16 00:46 DC 12/13/16 01:00 50 MCG Ondansetron HCl (Zofran Inj) 4 mg NOW STAT IV 12/13/16 00:44 12/13/16 00:46 DC 12/13/16 00:59 4 MG Potassium Chloride (Klor-Con M10) 30 meq NOW STAT PO 12/13/16 01:33 12/13/16 01:35 DC 12/13/16 01:45 30 MEQ ED Course Prior records reviewed and summarized above. Triage Nursing notes reviewed. Additional history obtained from the family. The patient's history was concerning for swelling and pain in the leg. Differential diagnosis: Etiologies such as DVT, musculoskeletal, infection, joint effusion, trauma, lymphedema, idiopathic, CHF, as well as others were entertained.. Physical examination: The physical examination revealed no signs of infection. Neurovascularly intact. ER treatment provided: Morphine, Zofran On reassessment the patient felt better. Diagnostics interpreted by me: The labs revealed stable H&H per chart review. No worrisome leukocytosis Imaging studies: Ultrasound negative for DVT This appears to be consistent with right lower leg swelling from recent surgery. Patient was neurovascularly and neurologically intact. No DVT. Stable H&H. She was advised to continue to elevate her leg and wear her compression hose and follow-up this week with her surgeon or here in the ER sooner for severe pain, numbness, tingling, worsening signs or symptoms or as needed. By the evaluation outlined above emergent etiologies such as DVT, septic joint, trauma, infection, CHF, as well as others were deemed relatively unlikely. The pt informed about the findings as listed above. All questions were answered and pleased with the treatment. Return instructions were outlined and the patient was discharged in stable condition. Referral: The patient was referred back to their orthopedic doctor for follow-up in 2 to 3 days for a recheck of the current condition. Case reviewed with my attending. Medical Decision As above Impression Primary Impression: Swelling of right lower extremity Departure Information Dispostion Home / Self-Care Condition GOOD Forms HOME CARE DOCUMENTATION FORM, Work Instructions, Return To Work: 3 days IMPORTANT VISIT INFORMATION Patient Instructions My [facility] Additional Instructions DO NOT drive, drink alcohol, operate machinery, or perform dangerous activities today. You were given medications in the ER that can affect your ability to safely function or operate a vehicle. Rest and elevate your leg. Continue current medications. Return to the ER immediately for any numbness, tingling, severe pain, extreme swelling in the extremity or as needed. Call your Orthopedics tomorrow to arrange follow up for your ER visit within the next few days. Work Instructions Return To Work: 3 days
--- NOTE | 2016-12-13 06:01 | DIAGNOSTIC IMAGING REPORT ---
Venous Doppler right leg VENOUS DOPP LOWER EXT UNILAT CLINICAL HISTORY: EVALUATE FOR DVT pain. Edema. TECHNIQUE: Venous Doppler COMPARISON STUDY: None FINDINGS: Normal study IMPRESSION: Normal study Electronically signed by: Lauri Fuentes M.D. 12/13/2016 6:00 AM Dictated Date/Time: 12/13/2016 5:57 AM
== END 2016-12-13 02:49 | disposition home or self-care (01) ==
LOC: C.EDB 00:21
DX: M79.89 Other specified soft tissue disorders (principal); Z96.651 Presence of right artificial knee joint; Z79.82 Long term (current) use of aspirin; Z79.899 Other long term (current) drug therapy; Z88.0 Allergy status to penicillin; Z88.1 Allergy status to other antibiotic agents; Z88.5 Allergy status to narcotic agent

== ENCOUNTER → 2017-01-19 | Outpatient (CLI) | payer BC ==
[~2017-01-19] MED LIST changes: -ASPEC325 PO; +ASPI325T45 PO; +POTA10CA28 PO; -PROM25TA9 PO
== END | disposition home or self-care (01) ==
LOC: C.LAB 09:13
PROVIDERS: ATTEND Family Medicine
DX: E87.8 Other disorders of electrolyte and fluid balance, not elsewhere classified (principal)